=== PATIENT | female | born 1965 | race Native Hawaiian/Other Pacific Islander ===

== ENCOUNTER 2016-04-12 14:07 | Emergency (ER) | payer MEDICAID ==
[2016-04-12 14:39] VITALS: BP 106/75
--- NOTE | 2016-04-12 15:55 | Emergency Department Report ---
Chief Complaint: Seizure Stated Complaint: SEIZURES Time Seen by Provider: 04/12/16 15:46 - HPI History of Present Illness: Patient is a 50-year-old female brought in by EMS who was reported to have a seizure while at work. Patient states she was at work when she had a seizure lasting less than a minute according to bystanders. Patient did not lose consciousness. Patient admits the back of her head hurts. Patient describes pain as throbbing in nature located lives to the back of her head. Patient also complains of tingling sensations all over her body. Patient denies fevers/chills/nausea/vomiting/shortness of breath/chest pain or problems. - ROS Review of Systems: As noted in HPI - Exam Vital Signs: Vital Signs 04/12/16 14:33 Temperature 98.7 F Pulse Rate 77 Respiratory 16 Rate Blood Pressure 106/75 O2 Sat by Pulse 100 Oximetry Physical Exam: GENERAL: Alert and oriented x3, no apparent distress, Normal Gait, atraumatic. EYES: Extra ocular muscles are intact. Pupils are equal, round, and reactive to light and accommodation. NECK: Supple. Non edematous, No carotid bruits. No lymphadenopathy or thyromegaly. LUNGS: Symetrical with respiration, No wheezing, no rales or crackles, CTAB. HEART: S1, S2 present, regular rate and rhythm without murmur, no rubs, no gallops. EXTREMITIES/MUSCULOSKELETAL: No cyanosis, clubbing, rash, lesions or edema. Full ROM bilaterally. UE/LE Pulses 2+ bilaterally. LE and UE 5+ strength bilaterally NEUROLOGIC: No focal Deficit, Cranial nerves II through XII are grossly intact. No loss of sensation, No facial droop, firm grasp bilat SKIN: Warm and dry, No lesions, No ulceration or induration present. MSE screening note: Focused history and physical exam performed. Due to findings the following was ordered: ED Medical Decision Making - Medical Decision Making Seizure protocol ordered. Patient is alert and oriented 3. Patient's vital signs are stable. Patient is not in any respiratory or acute distress. Patient awaiting to be seen by ED physician. ED Disposition for MSE Condition: Stable
[2016-04-12 18:02] LABS: Bilirubin,Urine NEG (Negative); Blood,Urine NEG (Negative); Ketones,Urine NEG (Negative); Leukocyte Esterase,Urine NEG (Negative); Mucus,Urine FEW /HPF; Nitrite,Urine NEG (Negative); Protein,Urine <15 mg/dL mg/dL (Negative); Urobilinogen,Urine < 2.0 mg/dL (<2.0); WBC,Urine < 1.0 /HPF (0.0-6.0)
--- NOTE | 2016-04-17 13:51 | ED Elopement Review ---
ED Pt Elopement review - Results review Lab results: Laboratory Tests 04/12/16 04/12/16 04/12/16 15:52 15:52 17:40 HCG, Qual Negative Urine Color Yellow Urine Turbidity Clear Urine pH 5.0 Ur Specific [place] 1.017 Urine Protein <15 mg/dl Urine Glucose (UA) Neg Urine Ketones Neg Urine Blood Neg Urine Nitrite Neg Urine Bilirubin Neg Urine Urobilinogen < 2.0 Ur Leukocyte Esterase Neg Urine WBC (Auto) < 1.0 Urine RBC (Auto) 4.0 U Epithel Cells (Auto) 2.0 Urine Mucus Few Carbamazepine 6.6 - Call Back decision Pt Call Back Decision: No action required
== END 2016-04-12 21:00 | disposition left against medical advice (07) ==
LOC: ED 14:07
DX: R56.9 Unspecified convulsions (principal); R51 Headache; R20.2 Paresthesia of skin; Z53.21 Procedure and treatment not carried out due to patient leaving prior to being seen by health care provider
CPT/HCPCS: 36415; 80156; 81001; 84703